=== PATIENT | female | born 1995 | race African-American/Black ===

== ENCOUNTER 2018-10-27 19:07 | Emergency (ER) | payer SELFPAY ==
[~2018-10-27] VITALS: Ht 157.5 cm; Wt 59.0 kg
[2018-10-27 19:13] VITALS: BP 125/58
== END 2018-10-27 23:00 | disposition left against medical advice (07) ==
LOC: ER 19:07
DX: Z53.21 Procedure and treatment not carried out due to patient leaving prior to being seen by health care provider (principal)